=== PATIENT | female | born 1995 | race Caucasian/White ===

== ENCOUNTER 2022-02-18 17:58 | Emergency (ER) | payer MEDICAID ==
[~2022-02-18] VITALS: Ht 154.4 cm; Wt 63.1 kg
[2022-02-18 18:18] VITALS: BP 114/71
--- NOTE | 2022-02-18 18:27 | NUR ---
COVID ANUP & FLU SWABS DONE.
[2022-02-18] MEDS ORDERED: ACETAMINOPHEN EXTRA STRENGTH 500 MG TAB PO ONE (18:50)
[2022-02-18] MEDS ORDERED: DIPH-670 PO (19:40)
[2022-02-18] MEDS ORDERED: ACET-1194 PO (19:40)
[2022-02-18] MEDS ORDERED: NIRM1TAB PO (19:44)
--- NOTE | 2022-02-18 20:38 | NUR ---
Patient discharged with v/s stable. Written and verbal after care instructions given and explained BY ROSALINDA DOVER.Patient alert, oriented and verbalized understanding of instructions. Ambulatory with steady gait. All questions addressed prior to discharge. ID band removed. Patient advised to follow up with PMD. Rx of TYLENOL, BENADRYL, AND PAXLOVID given. Patient educated on indication of medication including possible reaction and side effects. Opportunity to ask questions provided and answered.
== END 2022-02-18 20:30 | disposition home or self-care (01) ==
LOC: MED 17:58
DX: O98.512 Other viral diseases complicating pregnancy, second trimester (principal); U07.1 COVID-19; Z3A.18 18 weeks gestation of pregnancy
CPT/HCPCS: 99283; Q0163

== ENCOUNTER 2023-04-05 21:12 | Emergency (ER) | payer MEDICAID ==
[~2023-04-05] VITALS: Ht 160 cm; Wt 69.4 kg
[~2023-04-05 21:12] MED LIST: ACET-1194 PO; DIPH-670 PO; NIRM1TAB PO
[2023-04-05 21:14] VITALS: BP 115/68; PULSE 119; RESP 18; TEMP 103; O2SAT 99
[2023-04-05] MEDS: ACETAMINOPHEN 325 MG TAB PO ONE (21:31)
[2023-04-05 22:35] LABS: APPEARANCE,URINE CLEAR (CLEAR); BILIRUBIN,URINE 2+ (NEGATIVE); BLOOD, URINE NEGATIVE (NEGATIVE); COLOR,URINE YELLOW (YELLOW); LEUKOCYTE ESTERASE ,URINE NEGATIVE (NEGATIVE); NITRITE, URINE NEGATIVE (NEGATIVE); PH,URINE 7.5 (5.0-9.0); PROTEIN,URINE 3+ (NEGATIVE); UGLUCOSE TRACE (NEGATIVE); UROBILINOGEN,URINE >=8.0 EU/dL (0.2 - 1)
[2023-04-05] MEDS: NACL 0.9% 1,000 ML IV ONE (22:38)
[2023-04-05 22:46] LABS: FLU A ANTIGEN negative (NEGATIVE); FLU B ANTIGEN NEGATIVE (NEGATIVE)
[2023-04-05 22:51] LABS: ICTOTEST POSITIVE (NEGATIVE)
[2023-04-05 22:52] LABS: BACTERIA,URINE 1+ /HPF (None Seen); RBC,URINE 0-5 /HPF (0-5)
[2023-04-05 22:53] LABS: SQUAMOUS EPITHELIAL CELL,UR 0-3 (FEW) /LPF (0-3 (FEW)); WBC,URINE 0-5 /HPF (0-5)
[2023-04-06] MEDS ORDERED: ACET-10509 PO (00:11)
[2023-04-06] MEDS ORDERED: CEPH-588 PO (00:11)
[2023-04-06 00:17] VITALS: BP 97/53; PULSE 101; RESP 16; TEMP 97.7; O2SAT 98
== END 2023-04-06 00:17 | disposition home or self-care (01) ==
LOC: MED 21:12
DX: O98.812 Other maternal infectious and parasitic diseases complicating pregnancy, second trimester (principal); R82.71 Bacteriuria; Z3A.23 23 weeks gestation of pregnancy; Z79.899 Other long term (current) drug therapy; Z20.822 Contact with and (suspected) exposure to COVID-19
CPT/HCPCS: 81001; 87426; 87804; 96360; 99284; J7030; 99283